=== PATIENT | female | born 1975 | race Caucasian/White ===

== ENCOUNTER 2021-02-27 22:38 | Observation (INO) | payer BC ==
[2021-02-27] MEDS ORDERED: BABY ASPIRIN 81 MG CHEW PO ONE (22:56)
--- NOTE | 2021-02-27 22:59 | ERPHSYRPT ---
- History of Present Illness Time Seen by Provider: 02/27/21 22:42 Historian: patient Exam Limitations: no limitations Physician History: 45 years old female with history of hypertension, diabetes mellitus presented in the ER with chief complaint of chest tightness and pressure for the last 3 to 4 days, gradually worsening, aggravated with activity/exertion and better with resting. Patient reports having feeling of palpitations/heart going out of rhythm. She was recently at [facility] because of syncopal episode with negative CT head and was found to have low potassium of 2.1. Patient denies any shortness of breath, fever chills or cough. Does report strong family history of heart disease. Timing/Duration: day(s) (3), intermittent, gradual onset, worse Activities at Onset: rest Quality: fullness, pressure Location: central Chest Pain Radiation: no radiation Severity of Pain-Max: moderate Severity of Pain-Current: moderate Modifying Factors: Improves With: rest. Worsens With: exertion Associated Symptoms: palpitations, No shortness of breath Prior Chest Pain/Cardiac Workup: echocardiography Nitro Today/Relief: no nitro taken today Aspirin Treatment Today: no aspirin today Allergies/Adverse Reactions: No Known Drug Allergies Allergy (Unverified 02/27/21 22:56) Home Medications: Bumetanide [Bumex] 2 mg PO DAILY 03/25/15 [History] Metformin HCl 1000 mg [Glucophage 1000 MG] 500 mg PO DAILY 03/25/15 [History] Potassium Chloride [Klor-Con M20] 20 meq PO BID 02/27/21 [History] Hx Tetanus, Diphtheria Vaccination/Date Given: No Hx Influenza Vaccination/Date Given: No Hx Pneumococcal Vaccination/Date Given: No - Review of Systems Constitutional: No Symptoms Eyes: No Symptoms Ears, Nose, & Throat: No Symptoms Respiratory: No Symptoms Cardiac: Chest Pain, Palpitations Abdominal/Gastrointestinal: No Symptoms Genitourinary Symptoms: No Symptoms Musculoskeletal: No Symptoms Skin: No Symptoms Neurological: No Symptoms Psychological: No Symptoms Endocrine: No Symptoms Hematologic/Lymphatic: No Symptoms Immunological/Allergic: No Symptoms - Past Medical History Pertinent Past Medical History: Yes Neurological History: No Pertinent History Cardiac History: No Pertinent History, Hypertension Respiratory History: No Pertinent History Endocrine Medical History: Diabetes Type II Musculoskeletal History: No Pertinent History History: Other Other Medical History: Bursitis in the R hip - Past Surgical History Past Surgical History: Yes Gastrointestinal: Cholecystectomy Genitourinary: Other Female Surgical History: Section, Hysterectomy, Tubal Ligation - Social History Smoking Status: Never smoker Exposure to second hand smoke: No Alcohol Use: Socially Drug Use: none Patient Lives Alone: No Significant Family History: diabetes - Female History Hx Now: (unkn) - Nursing Vital Signs Nursing Vital Signs: Initial Vital Signs Temperature 98.2 F 02/27/21 22:54 Pulse Rate 85 02/27/21 22:54 Respiratory Rate 18 02/27/21 22:54 Blood Pressure 137/86 02/27/21 22:54 O2 Sat by Pulse Oximetry 98 02/27/21 22:54 Pain Scale Pain Intensity 0 - Physical Exam General Appearance: no apparent distress, alert, anxiety Eye Exam: PERRL/EOMI, eyes nml inspection Ears, Nose, Throat Exam: normal ENT inspection, TMs normal, pharynx normal Neck Exam: normal inspection, supple, full range of motion Respiratory Exam: normal breath sounds, lungs clear Cardiovascular Exam: regular rate/rhythm, normal heart sounds Gastrointestinal/Abdomen Exam: soft, normal bowel sounds Back Exam: normal inspection, normal range of motion Extremity Exam: normal inspection, normal range of motion, pelvis stable Neurologic Exam: alert, oriented x 3, cooperative, professor of chemistry II-XII nml as tested Skin Exam: normal color SpO2 Interpretation: normal SpO2: 98 O2 Delivery: Room Air - Course EKG Interpreted by Me: RATE (75), Sinus Rhythm, NORMAL AXIS, Non-specific ST Changes Ordered Tests: Active Orders 24 hr Category Date Time Status Centrifuge Separator Operator STAT Care 02/27/21 22:56 Active EKG-ER Only STAT Care 02/27/21 22:56 Active IV Insertion STAT Care 02/27/21 22:56 Active CHEST 1 VIEW (PORTABLE) Stat Exams 02/27/21 22:56 Taken CBC W DIFF Stat Lab 02/27/21 23:05 Completed CMP Stat Lab 02/27/21 23:05 Completed D-DIMER QUANTITATIVE Stat Lab 02/27/21 23:05 Completed HCG QUALITATIVE,SERUM Stat Lab 02/27/21 23:05 Completed MAGNESIUM Stat Lab 02/27/21 23:05 Completed NT PRO BNP Stat Lab 02/27/21 23:05 Completed TROPONIN Q3H Lab 02/27/21 23:06 Completed TROPONIN Q3H Lab 02/28/21 02:00 Ordered TROPONIN Q3H Lab 02/28/21 05:00 Ordered TROPONIN Q3H Lab 02/28/21 08:00 Ordered TROPONIN Q3H Lab 02/28/21 11:00 Ordered TSH [TSH, 3RD Generation] Stat Lab 02/27/21 23:05 Received Medication Summary Discontinued Medications Generic Name Dose Route Start Last Admin Trade Name Ramiroq PRN Reason Stop Dose Admin Aspirin 324 mg 02/27/21 22:56 02/27/21 23:27 Baby Aspirin 81 Mg Chew PO 02/27/21 22:57 324 mg STAT ONE Administration Lab/Rad Data: Laboratory Result Diagrams 02/27/21 23:05 02/27/21 23:05 Laboratory Results 02/27/21 02/27/21 02/27/21 Range/Units 23:06 23:05 23:05 WBC (4.0-10.5) K/mm3 RBC (4.1-5.4) M/mm3 Hgb (12.0-16.0) gm/dl Hct (35-47) % MCV (78-100) fl MCH (26-32) pg MCHC (32-36) g/dl RDW (11.5-14.0) % Plt Count (150-450) K/mm3 MPV (7.5-11.0) fl Gran % (36.0-66.0) % Eos # (Auto) (0-0.5) Absolute Lymphs (auto) (1.0-4.6) Absolute Monos (auto) (0.0-1.3) Lymphocytes % (24.0-44.0) % Monocytes % (0.0-12.0) % Eosinophils % (0.00-5.0) % Basophils % (0.0-0.4) % Absolute Granulocytes (1.4-6.9) Basophils # (0-0.4) D-Dimer 301 (215-500) ng/mL Sodium (137-145) mmol/L Potassium (3.5-5.1) mmol/L Chloride (98-107) mmol/L Carbon Dioxide (22-30) mmol/L Anion Gap (5-15) MEQ/L BUN (7-17) mg/dL Creatinine (0.52-1.04) mg/dL Estimated GFR ML/MIN Glucose (74-106) mg/dL Calcium (8.4-10.2) mg/dL Magnesium (1.6-2.3) mg/dL Total Bilirubin (0.2-1.3) mg/dL AST (14-36) U/L ALT (0-35) U/L Alkaline Phosphatase (38-126) U/L Troponin I < 0.012 (0.000-0.034) ng/mL NT-Pro-B Natriuret Pep (0-450) pg/mL Serum Total Protein (6.3-8.2) g/dL Albumin (3.5-5.0) g/dL Serum , Qual NEGATIVE (Negative) 02/27/21 02/27/21 Range/Units 23:05 23:05 WBC 8.7 (4.0-10.5) K/mm3 RBC 4.19 (4.1-5.4) M/mm3 Hgb 13.0 (12.0-16.0) gm/dl Hct 38.8 (35-47) % MCV 92.6 (78-100) fl MCH 31.0 (26-32) pg MCHC 33.5 (32-36) g/dl RDW 12.4 (11.5-14.0) % Plt Count 329 (150-450) K/mm3 MPV 8.8 (7.5-11.0) fl Gran % 40.9 (36.0-66.0) % Eos # (Auto) 0.25 (0-0.5) Absolute Lymphs (auto) 3.70 (1.0-4.6) Absolute Monos (auto) 1.14 (0.0-1.3) Lymphocytes % 42.8 (24.0-44.0) % Monocytes % 13.2 H (0.0-12.0) % Eosinophils % 2.9 (0.00-5.0) % Basophils % 0.2 (0.0-0.4) % Absolute Granulocytes 3.54 (1.4-6.9) Basophils # 0.02 (0-0.4) D-Dimer (215-500) ng/mL Sodium 139 (137-145) mmol/L Potassium 3.5 (3.5-5.1) mmol/L Chloride 98 (98-107) mmol/L Carbon Dioxide 31 H (22-30) mmol/L Anion Gap 14.2 (5-15) MEQ/L BUN 26 H (7-17) mg/dL Creatinine 0.99 (0.52-1.04) mg/dL Estimated GFR > 60.0 ML/MIN Glucose 100 (74-106) mg/dL Calcium 9.3 (8.4-10.2) mg/dL Magnesium 1.9 (1.6-2.3) mg/dL Total Bilirubin 0.10 L (0.2-1.3) mg/dL AST 28 (14-36) U/L ALT 38 H (0-35) U/L Alkaline Phosphatase 61 (38-126) U/L Troponin I (0.000-0.034) ng/mL NT-Pro-B Natriuret Pep 110 (0-450) pg/mL Serum Total Protein 7.7 (6.3-8.2) g/dL Albumin 4.4 (3.5-5.0) g/dL Serum , Qual (Negative) - Progress Progress: re-examined Air Movement: good Progress Note: 02/27/21 23:43 45 years old is evaluated for chest pain. EKG showed normal sinus rhythm with no acute ischemic changes. Given aspirin, does not want any other pain medication. Chest x-ray negative for any acute cardiopulmonary findings. Initial troponin and D-dimers are negative. Grossly unremarkable chemistries. Patient continues to have some pressure. She is given Nitropaste. Patient does have a history of diabetes mellitus, hypertension and a strong family history, would be admitted to trend cardiac enzyme and rule out acute coronary syndrome. Discussed with and patient is accepted for admiss ion. Blood Culture(s) Obtained: No Antibiotics given: No Discussed with : Mesfin Will see patient in: hospital (observation) Counseled pt/family regarding: lab results, diagnosis, rad results - Departure Departure Disposition: Observation Clinical Impression: Chest pain, rule out acute myocardial infarction Condition: Stable Critical Care Time: No Referrals: SHAWN THORNTON MD [Primary Care Provider] -
[2021-02-27 23:09] LABS: Absolute Neutrophil Ct (ANC) 3.54 (1.4-6.9); BASOPHIL % 0.2 % (0.0-0.4); Basophil (Absolute #) 0.02 (0-0.4); Eosinophil % 2.9 % (0.00-5.0); Eosinophil (Absolute #) 0.25 (0-0.5); Hematocrit 38.8 % (35-47); Lymphocytes % 42.8 % (24.0-44.0); Mean Cell Volume 92.6 fl (78-100); Mean Corpuscular Hgb Concent. 33.5 g/dl (32-36); Mean Platelet Volume 8.8 fl (7.5-11.0); Monocyte (Absolute #) 1.14 (0.0-1.3); Monocytes % 13.2 % (0.0-12.0); Neutrophil % 40.9 % (36.0-66.0); Platelet Count 329 K/mm3 (150-450); Red Blood Count 4.19 M/mm3 (4.1-5.4); Red Cell Distribution Width 12.4 % (11.5-14.0); White Blood Count 8.7 K/mm3 (4.0-10.5)
[2021-02-27 23:29] LABS: ALBUMIN 4.4 g/dL (3.5-5.0); ALKALINE PHOSPHATASE 61 U/L (38-126); ANION GAP 14.2 MEQ/L (5-15); BLOOD UREA NITROGEN 26 mg/dL (7-17); CHLORIDE 98 mmol/L (98-107); Calcium 9.3 mg/dL (8.4-10.2); Carbon Dioxide 31 mmol/L (22-30); Creatinine 1 0.99 mg/dL (0.52-1.04); EST GLOMERULAR FILTRATION RATE > 60.0 ML/MIN; Glucose 100 mg/dL (74-106); MAGNESIUM 1.9 mg/dL (1.6-2.3); NT PRO BNP 110 pg/mL (0-450); Potassium 3.5 mmol/L (3.5-5.1); SGOT/AST 28 U/L (14-36); SGPT/ALT 38 U/L (0-35); SODIUM 139 mmol/L (137-145); Total Protein 7.7 g/dL (6.3-8.2)
[2021-02-27] MEDS ORDERED: NITRO-BID 2% UD PACKETS TOP ONE (23:42)
[2021-02-28] MEDS ORDERED: NITRO-BID 2% UD PACKETS ONE (00:20)
[2021-02-28] MEDS ORDERED: MORPHINE SULFATE 2 MG INJ IV PRN (02:48)
[2021-02-28] MEDS ORDERED: DUONEB 0.5-3 MG/3 ml Neb IH PRN (02:48)
[2021-02-28] MEDS ORDERED: HUMALOG SQ PRN (02:48)
[2021-02-28] MEDS ORDERED: Zofran 4 MG/2 ML VIAL IV PRN (02:48)
[2021-02-28] MEDS ORDERED: TYLENOL 325 MG PO PRN (02:48)
[2021-02-28 05:42] LABS: Absolute Neutrophil Ct (ANC) 3.45 (1.4-6.9); BASOPHIL % 0.4 % (0.0-0.4); Basophil (Absolute #) 0.03 (0-0.4); Eosinophil % 3.1 % (0.00-5.0); Eosinophil (Absolute #) 0.23 (0-0.5); Hematocrit 35.3 % (35-47); Hemoglobin 11.7 gm/dl (12.0-16.0); Lymphocyte (Absolute #) 2.69 (1.0-4.6); Lymphocytes % 36.3 % (24.0-44.0); Mean Cell Volume 94.6 fl (78-100); Mean Corpuscular Hemoglobin 31.4 pg (26-32); Mean Corpuscular Hgb Concent. 33.1 g/dl (32-36); Mean Platelet Volume 9.4 fl (7.5-11.0); Monocyte (Absolute #) 1.02 (0.0-1.3); Monocytes % 13.7 % (0.0-12.0); Neutrophil % 46.5 % (36.0-66.0); Platelet Count 305 K/mm3 (150-450); Red Blood Count 3.73 M/mm3 (4.1-5.4); Red Cell Distribution Width 12.5 % (11.5-14.0); White Blood Count 7.4 K/mm3 (4.0-10.5)
[2021-02-28 06:09] LABS: ALBUMIN 3.5 g/dL (3.5-5.0); ALKALINE PHOSPHATASE 51 U/L (38-126); ANION GAP 9.2 MEQ/L (5-15); BILIRUBIN,TOTAL < 0.10 mg/dL (0.2-1.3); BLOOD UREA NITROGEN 27 mg/dL (7-17); CHLORIDE 101 mmol/L (98-107); Calcium 8.6 mg/dL (8.4-10.2); Carbon Dioxide 31 mmol/L (22-30); Creatinine 1 0.81 mg/dL (0.52-1.04); EST GLOMERULAR FILTRATION RATE > 60.0 ML/MIN; Glucose 96 mg/dL (74-106); Potassium 3.2 mmol/L (3.5-5.1); SGOT/AST 22 U/L (14-36); SGPT/ALT 31 U/L (0-35); SODIUM 138 mmol/L (137-145); Total Protein 6.6 g/dL (6.3-8.2)
--- NOTE | 2021-02-28 08:31 | PCM.HP ---
History of Present Illness - Chief Complaint Chief Complaint: Chest pain for 2-3 days History of Present Illness: is a 45 year old female.with history of hypertension, diabetes mellitus presented in the ER with chief complaint of chest tightness and pressure for the last 3 to 4 days, gradually worsening, aggravated with activity/exertion and better with resting. Patient reports having feeling of palpitations/heart going out of rhythm. She was recently at [facility] because of syncopal episode with negative CT head and was found to have low potassium of 2.1. Patient denies any shortness of breath, fever chills or cough. Does report strong family history of heart disease. - Review of Systems Constitutional: No Fever, No Chills Eyes: No Symptoms Ears, Nose, & Throat: No Symptoms Respiratory: No Cough, No Short Of Breath Cardiac: Chest Pain, No Edema, No Syncope Abdominal/Gastrointestinal: No Abdominal Pain, No Nausea, No Vomiting, No Diarrhea Genitourinary Symptoms: No Dysuria Musculoskeletal: No Back Pain, No Neck Pain Skin: No Rash Neurological: No Dizziness, No Focal Weakness, No Sensory Changes Psychological: No Symptoms Endocrine: No Symptoms Hematologic/Lymphatic: No Symptoms Immunological/Allergic: No Symptoms Medications & Allergies Home Medications: Home Medication List Metformin HCl 1000 mg [Glucophage 1000 MG] 500 mg PO DAILY 03/25/15 [History Confirmed 02/27/21] Potassium Chloride [Klor-Con M20] 20 meq PO BID 02/27/21 [History Confirmed 02/27/21] Chlorthalidone 25 mg PO DAILY 02/28/21 [History Confirmed 02/28/21] Allergies/Adverse Reactions: Allergies Allergy/AdvReac Type Severity Reaction Status Date / Time No Known Drug Allergies Allergy Unverified 02/27/21 22:56 - Past Medical History Past Medical History: Yes Neurological History: No Pertinent History ENT History: No Pertinent History Cardiac History: No Pertinent History, High Cholesterol, Hypertension Respiratory History: No Pertinent History Endocrine Medical History: Diabetes Type II Musculoskelatal History: No Pertinent History GI Medical History: No Pertinent History History: Other Pyscho-Social History: No Pertinent History Reproductive Disorders: No Pertinent History Comment: Bursitis in the R hip - Female History Hx Last Menstrual Period: Hysterectomy Are you now?: No (unkn) - Past Surgical History Past Surgical History: Yes Neuro Surgical History: No Pertinent History Cardiac History: No Pertinent History Respiratory Surgery: No Pertinent History GI Surgical History: Cholecystectomy Genitourinary Surgical Hx: Other Musculskeletal Surgical Hx: No Pertinent History Female Surgical History: Section, Hysterectomy, Tubal Ligation Other Surgical History: HX Bladder Surgery with Mesh - Social History Smoking Status: Never smoker Exposure to second hand smoke: No Alcohol: None Drug Use: none Significant Family History: diabetes - Physical Exam Vital Signs: Vital Signs - 24 hr Temp Pulse Resp BP Pulse Ox 02/28/21 07:41 98.2 F 79 22 101/64 92 L 02/28/21 03:13 97.9 F 81 18 97/62 96 02/28/21 02:04 79 16 104/65 95 02/28/21 01:00 80 18 117/72 96 02/28/21 00:00 77 20 115/70 98 02/27/21 23:45 98 02/27/21 23:41 78 18 122/90 98 02/27/21 23:17 18 98 02/27/21 22:54 98.2 F 85 18 137/86 98 General Appearance: no apparent distress, alert Neurologic Exam: alert, oriented x 3, cooperative, normal mood/affect, nml cerebellar function, nml station & gait, sensation nml, No motor deficits Eye Exam: PERRL/EOMI, eyes nml inspection Ears, Nose, Throat Exam: normal ENT inspection, TMs normal, pharynx normal, moist mucous membranes Neck Exam: normal inspection, non-tender, supple, full range of motion Respiratory Exam: normal breath sounds, lungs clear, No respiratory distress Cardiovascular Exam: regular rate/rhythm, normal heart sounds, normal peripheral pulses Gastrointestinal/Abdomen Exam: soft, normal bowel sounds, No tenderness, No mass Back Exam: normal inspection, normal range of motion, No CVA tenderness, No vertebral tenderness Extremity Exam: normal inspection, normal range of motion, pelvis stable Skin Exam: normal color, warm, dry, No rash Lymphatic Exam: No adenopathy Results - Labs Lab/Micro Results: Lab Results-Last 24 Hours 02/27/21 02/27/21 02/27/21 Range/Units 23:05 23:05 23:05 WBC 8.7 (4.0-10.5) K/mm3 RBC 4.19 (4.1-5.4) M/mm3 Hgb 13.0 (12.0-16.0) gm/dl Hct 38.8 (35-47) % MCV 92.6 (78-100) fl MCH 31.0 (26-32) pg MCHC 33.5 (32-36) g/dl RDW 12.4 (11.5-14.0) % Plt Count 329 (150-450) K/mm3 MPV 8.8 (7.5-11.0) fl Gran % 40.9 (36.0-66.0) % Eos # (Auto) 0.25 (0-0.5) Absolute Lymphs (auto) 3.70 (1.0-4.6) Absolute Monos (auto) 1.14 (0.0-1.3) Lymphocytes % 42.8 (24.0-44.0) % Monocytes % 13.2 H (0.0-12.0) % Eosinophils % 2.9 (0.00-5.0) % Basophils % 0.2 (0.0-0.4) % Absolute Granulocytes 3.54 (1.4-6.9) Basophils # 0.02 (0-0.4) D-Dimer 301 (215-500) ng/mL Sodium 139 (137-145) mmol/L Potassium 3.5 (3.5-5.1) mmol/L Chloride 98 (98-107) mmol/L Carbon Dioxide 31 H (22-30) mmol/L Anion Gap 14.2 (5-15) MEQ/L BUN 26 H (7-17) mg/dL Creatinine 0.99 (0.52-1.04) mg/dL Estimated GFR > 60.0 ML/MIN Glucose 100 (74-106) mg/dL POC Glucometer (74 to 106) mg/dL Calcium 9.3 (8.4-10.2) mg/dL Magnesium 1.9 (1.6-2.3) mg/dL Total Bilirubin 0.10 L (0.2-1.3) mg/dL AST 28 (14-36) U/L ALT 38 H (0-35) U/L Alkaline Phosphatase 61 (38-126) U/L Troponin I (0.000-0.034) ng/mL NT-Pro-B Natriuret Pep 110 (0-450) pg/mL Serum Total Protein 7.7 (6.3-8.2) g/dL Albumin 4.4 (3.5-5.0) g/dL TSH 3rd Generation (0.47-4.68) mIU/L Serum , Qual (Negative) SARS-CoV-2 (PCR) (NEGATIVE) 02/27/21 02/27/21 02/27/21 Range/Units 23:05 23:05 23:06 WBC (4.0-10.5) K/mm3 RBC (4.1-5.4) M/mm3 Hgb (12.0-16.0) gm/dl Hct (35-47) % MCV (78-100) fl MCH (26-32) pg MCHC (32-36) g/dl RDW (11.5-14.0) % Plt Count (150-450) K/mm3 MPV (7.5-11.0) fl Gran % (36.0-66.0) % Eos # (Auto) (0-0.5) Absolute Lymphs (auto) (1.0-4.6) Absolute Monos (auto) (0.0-1.3) Lymphocytes % (24.0-44.0) % Monocytes % (0.0-12.0) % Eosinophils % (0.00-5.0) % Basophils % (0.0-0.4) % Absolute Granulocytes (1.4-6.9) Basophils # (0-0.4) D-Dimer (215-500) ng/mL Sodium (137-145) mmol/L Potassium (3.5-5.1) mmol/L Chloride (98-107) mmol/L Carbon Dioxide (22-30) mmol/L Anion Gap (5-15) MEQ/L BUN (7-17) mg/dL Creatinine (0.52-1.04) mg/dL Estimated GFR ML/MIN Glucose (74-106) mg/dL POC Glucometer (74 to 106) mg/dL Calcium (8.4-10.2) mg/dL Magnesium (1.6-2.3) mg/dL Total Bilirubin (0.2-1.3) mg/dL AST (14-36) U/L ALT (0-35) U/L Alkaline Phosphatase (38-126) U/L Troponin I < 0.012 (0.000-0.034) ng/mL NT-Pro-B Natriuret Pep (0-450) pg/mL Serum Total Protein (6.3-8.2) g/dL Albumin (3.5-5.0) g/dL TSH 3rd Generation 3.220 (0.47-4.68) mIU/L Serum , Qual NEGATIVE (Negative) SARS-CoV-2 (PCR) (NEGATIVE) 02/28/21 02/28/21 02/28/21 Range/Units 00:30 01:59 05:37 WBC (4.0-10.5) K/mm3 RBC (4.1-5.4) M/mm3 Hgb (12.0-16.0) gm/dl Hct (35-47) % MCV (78-100) fl MCH (26-32) pg MCHC (32-36) g/dl RDW (11.5-14.0) % Plt Count (150-450) K/mm3 MPV (7.5-11.0) fl Gran % (36.0-66.0) % Eos # (Auto) (0-0.5) Absolute Lymphs (auto) (1.0-4.6) Absolute Monos (auto) (0.0-1.3) Lymphocytes % (24.0-44.0) % Monocytes % (0.0-12.0) % Eosinophils % (0.00-5.0) % Basophils % (0.0-0.4) % Absolute Granulocytes (1.4-6.9) Basophils # (0-0.4) D-Dimer (215-500) ng/mL Sodium (137-145) mmol/L Potassium (3.5-5.1) mmol/L Chloride (98-107) mmol/L Carbon Dioxide (22-30) mmol/L Anion Gap (5-15) MEQ/L BUN (7-17) mg/dL Creatinine (0.52-1.04) mg/dL Estimated GFR ML/MIN Glucose (74-106) mg/dL POC Glucometer (74 to 106) mg/dL Calcium (8.4-10.2) mg/dL Magnesium (1.6-2.3) mg/dL Total Bilirubin (0.2-1.3) mg/dL AST (14-36) U/L ALT (0-35) U/L Alkaline Phosphatase (38-126) U/L Troponin I < 0.012 < 0.012 (0.000-0.034) ng/mL NT-Pro-B Natriuret Pep (0-450) pg/mL Serum Total Protein (6.3-8.2) g/dL Albumin (3.5-5.0) g/dL TSH 3rd Generation (0.47-4.68) mIU/L Serum , Qual (Negative) SARS-CoV-2 (PCR) NEGATIVE (NEGATIVE) 02/28/21 02/28/21 02/28/21 Range/Units 05:37 05:37 06:53 WBC 7.4 (4.0-10.5) K/mm3 RBC 3.73 L (4.1-5.4) M/mm3 Hgb 11.7 L (12.0-16.0) gm/dl Hct 35.3 (35-47) % MCV 94.6 (78-100) fl MCH 31.4 (26-32) pg MCHC 33.1 (32-36) g/dl RDW 12.5 (11.5-14.0) % Plt Count 305 (150-450) K/mm3 MPV 9.4 (7.5-11.0) fl Gran % 46.5 (36.0-66.0) % Eos # (Auto) 0.23 (0-0.5) Absolute Lymphs (auto) 2.69 (1.0-4.6) Absolute Monos (auto) 1.02 (0.0-1.3) Lymphocytes % 36.3 (24.0-44.0) % Monocytes % 13.7 H (0.0-12.0) % Eosinophils % 3.1 (0.00-5.0) % Basophils % 0.4 (0.0-0.4) % Absolute Granulocytes 3.45 (1.4-6.9) Basophils # 0.03 (0-0.4) D-Dimer (215-500) ng/mL Sodium 138 (137-145) mmol/L Potassium 3.2 L (3.5-5.1) mmol/L Chloride 101 (98-107) mmol/L Carbon Dioxide 31 H (22-30) mmol/L Anion Gap 9.2 (5-15) MEQ/L BUN 27 H (7-17) mg/dL Creatinine 0.81 (0.52-1.04) mg/dL Estimated GFR > 60.0 ML/MIN Glucose 96 (74-106) mg/dL POC Glucometer 104 (74 to 106) mg/dL Calcium 8.6 (8.4-10.2) mg/dL Magnesium (1.6-2.3) mg/dL Total Bilirubin < 0.10 L (0.2-1.3) mg/dL AST 22 (14-36) U/L ALT 31 (0-35) U/L Alkaline Phosphatase 51 (38-126) U/L Troponin I (0.000-0.034) ng/mL NT-Pro-B Natriuret Pep (0-450) pg/mL Serum Total Protein 6.6 (6.3-8.2) g/dL Albumin 3.5 (3.5-5.0) g/dL TSH 3rd Generation (0.47-4.68) mIU/L Serum , Qual (Negative) SARS-CoV-2 (PCR) (NEGATIVE) Accuchecks Date 02/28/21 Time 06:53 - Radiology Impressions Radiology Exams & Impressions: Radiology Procedures Category Date Time Status CHEST 1 VIEW (PORTABLE) Stat Exams 02/27/21 22:56 Taken Assessment/Plan (1) Chest pain, rule out acute myocardial infarction Current Visit: Yes Status: Acute Assessment & Plan: Chief Complaint Diagnosis Chest pain rule out acute NH Allergies Allergy/AdvReac Type Severity Reaction Status Date / Time No Known Drug Allergies Allergy Unverified 02/27/21 22:56 Vital Signs (Last 24 hours) Temp Pulse Resp BP Pulse Ox 02/28/21 07:41 98.2 F 79 22 101/64 92 L 02/28/21 03:13 97.9 F 81 18 97/62 96 02/28/21 02:04 79 16 104/65 95 02/28/21 01:00 80 18 117/72 96 02/28/21 00:00 77 20 115/70 98 02/27/21 23:45 98 02/27/21 23:41 78 18 122/90 98 02/27/21 23:17 18 98 02/27/21 22:54 98.2 F 85 18 137/86 98 Home Medications Medication Instructions Recorded Confirmed Last Taken Type Potassium Chloride [Klor-Con M20] 20 meq PO BID 02/27/21 02/27/21 02/27/21 History Chlorthalidone 25 mg PO DAILY 02/28/21 02/28/21 02/27/21 History Current Medications Generic Name Dose Route Start Last Admin Trade Name Ramiroq PRN Reason Stop Dose Admin Acetaminophen 650 mg 02/28/21 02:48 Tylenol 325 Mg PO 03/30/21 02:47 Q4H PRN PRN PAIN AND/OR FEVER Albuterol/Ipratropium 3 ml 02/28/21 02:48 Duoneb 0.5-3 Mg/3 Ml Neb IH 03/30/21 02:47 Q4HPRN PRN SHORTNESS OF BREATH/WHEEZING Insulin Human Lispro 0 unit 02/28/21 02:48 Humalog SQ 03/30/21 02:47 UD PRN HYPERGLYCEMIA Morphine Sulfate 2 mg 02/28/21 02:48 Morphine Sulfate 2 Mg Inj IV 03/05/21 02:47 Q4H PRN PRN PAIN Ondansetron HCl 4 mg 02/28/21 02:48 Zofran 4 Mg/2 Ml Vial IV 03/30/21 02:47 Q6H PRN PRN NAUSEA/VOMITING Pantoprazole Sodium 40 mg 02/28/21 10:00 Protonix 40 Mg Iv IV 03/30/21 09:59 Q24H10 RAYRAY Discontinued Medications Generic Name Dose Route Start Last Admin Trade Name Ramiroq PRN Reason Stop Dose Admin Aspirin 324 mg 02/27/21 22:56 02/27/21 23:27 Baby Aspirin 81 Mg Chew PO 02/27/21 22:57 324 mg STAT ONE Administration Nitroglycerin 0.5 gm 02/27/21 23:42 02/28/21 00:21 Nitro-Bid 2% Ud Packets TOP 02/27/21 23:43 0.5 gm STAT ONE Administration Nitroglycerin Confirm 02/28/21 00:20 Nitro-Bid 2% Ud Packets Administered 02/28/21 00:21 Dose 1 gm .ROUTE .STK-MED ONE Intake & Output (Last 24 hours) 02/25/21 02/26/21 02/27/21 02/28/21 11:59 11:59 11:59 11:59 Intake Total 240 Balance 240 Weight 77.3 kg Laboratory Results (Last 24 hours) 02/28/21 02/28/21 02/28/21 06:53 05:37 05:37 WBC 7.4 RBC 3.73 L Hgb 11.7 L Hct 35.3 MCV 94.6 MCH 31.4 MCHC 33.1 RDW 12.5 Plt Count 305 MPV 9.4 Gran % 46.5 Eos # (Auto) 0.23 Absolute Lymphs (auto) 2.69 Absolute Monos (auto) 1.02 Lymphocytes % 36.3 Monocytes % 13.7 H Eosinophils % 3.1 Basophils % 0.4 Absolute Granulocytes 3.45 Basophils # 0.03 D-Dimer Sodium 138 Potassium 3.2 L Chloride 101 Carbon Dioxide 31 H Anion Gap 9.2 BUN 27 H Creatinine 0.81 Estimated GFR > 60.0 Glucose 96 POC Glucometer 104 Calcium 8.6 Magnesium Total Bilirubin < 0.10 L AST 22 ALT 31 Alkaline Phosphatase 51 Troponin I NT-Pro-B Natriuret Pep Serum Total Protein 6.6 Albumin 3.5 TSH 3rd Generation Serum , Qual SARS-CoV-2 (PCR) 02/28/21 02/28/21 02/28/21 05:37 01:59 00:30 WBC RBC Hgb Hct MCV MCH MCHC RDW Plt Count MPV Gran % Eos # (Auto) Absolute Lymphs (auto) Absolute Monos (auto) Lymphocytes % Monocytes % Eosinophils % Basophils % Absolute Granulocytes Basophils # D-Dimer Sodium Potassium Chloride Carbon Dioxide Anion Gap BUN Creatinine Estimated GFR Glucose POC Glucometer Calcium Magnesium Total Bilirubin AST ALT Alkaline Phosphatase Troponin I < 0.012 < 0.012 NT-Pro-B Natriuret Pep Serum Total Protein Albumin TSH 3rd Generation Serum , Qual SARS-CoV-2 (PCR) NEGATIVE 02/27/21 02/27/21 02/27/21 23:06 23:05 23:05 WBC RBC Hgb Hct MCV MCH MCHC RDW Plt Count MPV Gran % Eos # (Auto) Absolute Lymphs (auto) Absolute Monos (auto) Lymphocytes % Monocytes % Eosinophils % Basophils % Absolute Granulocytes Basophils # D-Dimer Sodium Potassium Chloride Carbon Dioxide Anion Gap BUN Creatinine Estimated GFR Glucose POC Glucometer Calcium Magnesium Total Bilirubin AST ALT Alkaline Phosphatase Troponin I < 0.012 NT-Pro-B Natriuret Pep Serum Total Protein Albumin TSH 3rd Generation 3.220 Serum , Qual NEGATIVE SARS-CoV-2 (PCR) 02/27/21 02/27/21 02/27/21 23:05 23:05 23:05 WBC 8.7 RBC 4.19 Hgb 13.0 Hct 38.8 MCV 92.6 MCH 31.0 MCHC 33.5 RDW 12.4 Plt Count 329 MPV 8.8 Gran % 40.9 Eos # (Auto) 0.25 Absolute Lymphs (auto) 3.70 Absolute Monos (auto) 1.14 Lymphocytes % 42.8 Monocytes % 13.2 H Eosinophils % 2.9 Basophils % 0.2 Absolute Granulocytes 3.54 Basophils # 0.02 D-Dimer 301 Sodium 139 Potassium 3.5 Chloride 98 Carbon Dioxide 31 H Anion Gap 14.2 BUN 26 H Creatinine 0.99 Estimated GFR > 60.0 Glucose 100 POC Glucometer Calcium 9.3 Magnesium 1.9 Total Bilirubin 0.10 L AST 28 ALT 38 H Alkaline Phosphatase 61 Troponin I NT-Pro-B Natriuret Pep 110 Serum Total Protein 7.7 Albumin 4.4 TSH 3rd Generation Serum , Qual SARS-CoV-2 (PCR) Orders (Last 24 hours) Category Date Time Status Bedrest with BRP/BSC ROUTINE Activity 02/28/21 02:48 Active Up With Assistance ROUTINE Activity 02/28/21 02:48 Active Deboner STAT Care 02/27/21 22:56 Completed Code Status Order ROUTINE Care 02/28/21 02:48 Active EKG-ER Only STAT Care 02/27/21 22:56 Completed Fall Protocol Q1H Care 02/28/21 02:48 Active IV Care Q6H Care 02/28/21 02:48 Active IV Insertion STAT Care 02/27/21 22:56 Completed POCT Glucose Check ACHS Care 02/28/21 02:[address] in Observation ROUTINE Care 02/28/21 02:48 Active Genoveva Anaya ROUTINE Care 02/28/21 02:48 Active Consistent Carbohydrate Diet 1800 Calorie Diet 02/28/21 Breakfast Active CHEST 1 VIEW (PORTABLE) Stat Exams 02/27/21 22:56 Taken CBC W DIFF AM.LAB Lab 02/28/21 05:37 Completed CBC W DIFF Stat Lab 02/27/21 23:05 Completed CMP AM.LAB Lab 02/28/21 05:37 Completed CMP Stat Lab 02/27/21 23:05 Completed D-DIMER QUANTITATIVE Stat Lab 02/27/21 23:05 Completed HCG QUALITATIVE,SERUM Stat Lab 02/27/21 23:05 Completed MAGNESIUM Stat Lab 02/27/21 23:05 Completed NT PRO BNP Stat Lab 02/27/21 23:05 Completed POCT GLUCOSE Stat Lab 02/28/21 06:53 Completed SARS-CoV-2 Xpert Express Routine Lab 02/28/21 00:30 Completed TROPONIN Q3H Lab 02/27/21 23:06 Completed TROPONIN Q3H Lab 02/28/21 01:59 Completed TROPONIN Q3H Lab 02/28/21 05:37 Completed TROPONIN Q3H Lab 02/28/21 08:10 Received TROPONIN Q3H Lab 02/28/21 11:00 Ordered TSH [TSH, 3RD Generation] Stat Lab 02/27/21 23:05 Completed Acetaminophen 325 mg [Tylenol 325 mg] Med 02/28/21 02:48 Active 650 mg PO Q4H PRN PRN Albuterol/Ipratropium 3ml Neb* [DUONEB 0.5-3 MG/3 ml Med 02/28/21 02:48 Active Neb] 3 ml IH Q4HPRN PRN Aspirin 81 gm Chew [Baby Aspirin 81 mg Chew] Med 02/27/21 22:56 Discontinued 324 mg PO STAT ONE Insulin Lispro [Humalog] Med 02/28/21 02:48 Active See Dose Instructions SQ UD PRN Morphine Sulfate 2 mg Inj Med 02/28/21 02:48 Active 2 mg IV Q4H PRN PRN Nitroglycerin 2 %Ointment [Nitro-Bid 2% Ud Packets Med 02/27/21 23:42 Discontinued *] 0.5 gm TOP STAT ONE Nitroglycerin 2 %Ointment [Nitro-Bid 2% Ud Packets Med 02/28/21 00:20 D iscontinued *] 1 gm .ROUTE .STK-MED ONE Ondansetron HCl 4 mg/2 ml [Zofran 4 MG/2 ML VIAL] Med 02/28/21 02:48 Active 4 mg IV Q6H PRN PRN Pantoprazole 40 mg [Protonix 40 mg IV] Med 02/28/21 10:00 Active 40 mg IV Q24H10 Patient Care Notes (Last 24 hours) 02/28/21 04:11 Respiratory Note by Norberto Newman CANCELLED O2 ORDER AND PRN TX. PT 93% ON RA AT THIS TIME AND DOESN'T TAKE TX AT HM. NOT INDICATED AT THIS TIME. Initialized on 02/28/21 04:11 - END OF NOTE Code(s): R07.9 - CHEST PAIN, UNSPECIFIED
--- NOTE | 2021-02-28 08:54 | XRAY ---
Indication: Chest pain and short of breath. Comparison: None Portable chest demonstrates normal heart and lungs. Bony thorax intact with old right clavicle fracture.
[2021-02-28] MEDS ORDERED: NON-FORMULARY ITEM (Chlorthalidone [Chlorthalidone] 25 MG) PO SCH (10:00)
[2021-02-28] MEDS ORDERED: NON-FORMULARY ITEM PO SCH (10:00)
[2021-02-28] MEDS ORDERED: NON-FORMULARY ITEM (Potassium Chloride [Klor-Con M20] 20 MEQ) PO SCH (10:00)
[2021-02-28] MEDS ORDERED: Glucophage 500 MG PO SCH (10:00)
[2021-02-28] MEDS ORDERED: Klor Con 10 MEQ PO SCH (10:00)
[2021-02-28] MEDS ORDERED: PROTONIX 40 MG IV IV SCH (10:00)
[2021-02-28 12:26] VITALS: BP 113/64; PULSE 70; O2SAT 96
== END 2021-02-28 14:00 | disposition home or self-care (01) ==
LOC: ED 22:38 → MED SURG 02-28 02:35
PROVIDERS: ADMIT General Practice; ATTEND General Practice
DX: R07.9 Chest pain, unspecified (principal); I10 Essential (primary) hypertension; E11.9 Type 2 diabetes mellitus without complications; R00.2 Palpitations; Z79.899 Other long term (current) drug therapy; E78.00 Pure hypercholesterolemia, unspecified; Z20.828 Contact with and (suspected) exposure to other viral communicable diseases
CPT/HCPCS: 36000; 36415; 71045; 80053; 81025; 82947; 83735; 83880; 84443; 84484; 85025; 85379; 93005; 93041; 93268; 99285; G0378; U0003; A9270-GY

== ENCOUNTER 2021-07-24 16:14 | Day surgery (SDC) | payer BC ==
[2021-07-24] MEDS ORDERED: Xylocaine 1% Vial 30 ML PF IJ ONE (16:15)
[2021-07-24] MEDS ORDERED: BUPIVACAINE 0.5% VIAL IJ ONE (16:15)
[2021-07-24] MEDS ORDERED: Depo-Medrol 40 MG/ML IM ONE (16:15)
--- NOTE | 2021-07-24 18:10 | XRAY ---
Indication: Bilateral SI joint injection. Intraoperative fluoroscopy provided for 42 seconds. 5 digital spot image submitted for interpretation demonstrates posterior needle tip projecting over the inferior left and right SI joint. Correlate with intraoperative findings/report.
--- NOTE | 2021-07-25 08:53 | XRAY ---
42 seconds fluoroscopy time in surgery for injections of both SI joints.
== END 2021-07-24 17:30 | disposition home or self-care (01) ==
LOC: SDC-PAIN 16:14
PROVIDERS: ATTEND Psychiatry & Neurology Pain Medicine
DX: M46.1 Sacroiliitis, not elsewhere classified (principal); I10 Essential (primary) hypertension; E11.9 Type 2 diabetes mellitus without complications; Z79.899 Other long term (current) drug therapy
CPT/HCPCS: 27096; 72202; 77002; 82947; J1030; J2001; G0260

== ENCOUNTER 2021-08-07 06:49 | Day surgery (SDC) | payer BC ==
[2021-08-07] MEDS ORDERED: BUPIVACAINE 0.5% VIAL IJ ONE (06:50)
[2021-08-07] MEDS ORDERED: Xylocaine 1% Vial 30 ML PF IJ ONE (06:50)
[2021-08-07] MEDS ORDERED: Decadron 4 MG INJ IV ONE (06:50)
--- NOTE | 2021-08-07 10:08 | XRAY ---
Indication: Right hip injection. Intraoperative fluoroscopy provided for 20 seconds. Single digital spot image obtained prone submitted for interpretation demonstrates needle tip projecting just lateral to the right femur neck. Small amount of contrast injected for needle tip placement. Correlate with intraoperative findings/report.
--- NOTE | 2021-08-07 10:18 | XRAY ---
Indication: Right piriformis injection. Intraoperative fluoroscopy provided for 17 seconds. Single digital spot image obtained prone submitted for interpretation demonstrates posterior needle tip projecting over the expected right piriformis muscle. Small amount of contrast injected for needle tip placement. Correlate with intraoperative findings/report.
--- NOTE | 2021-08-07 10:43 | XRAY ---
17 seconds of fluoroscopy was used in surgery for a right piriformis injection.
--- NOTE | 2021-08-07 10:53 | XRAY ---
20 seconds of fluoroscopy was used in surgery for a right hip intra-articular injection.
== END 2021-08-07 08:20 | disposition home or self-care (01) ==
LOC: SDC-PAIN 06:49
PROVIDERS: ATTEND Psychiatry & Neurology Pain Medicine
DX: M16.11 Unilateral primary osteoarthritis, right hip (principal); M79.18 Myalgia, other site; I10 Essential (primary) hypertension; E11.9 Type 2 diabetes mellitus without complications; Z79.899 Other long term (current) drug therapy
CPT/HCPCS: 20552; 20610; 72020; 73501; 77002; 82947; J1100; J2001; Q9966

== ENCOUNTER 2021-08-12 10:50 | Emergency (ER) | payer BC ==
--- NOTE | 2021-08-12 11:27 | ERPHSYRPT ---
- History of Present Illness Time Seen by Provider: 08/12/21 11:15 Source: patient Exam Limitations: no limitations Patient Subjective Stated Complaint: Weakness Triage Nursing Assessment: Patient ambulated back to ED and transferred self to bed. Patient A+O X3. Patient's skin pink, warm and dry. Patient complains of weakness that started today. Patient states she has a hx of low potassium and it feels like her potassium is low. Patient states last night she was having cramps in the back of her legs. Patient denies pain or discomfort. Patient has K+ drawn on 08/05/2021 and it was 3.2. Physician History: This is a 46-year-old obese white female patient of Dr. Thornton who has chronic recurrent low potassium levels and also is a [id number] diabetic. Patient states that she is having similar symptoms that she had in the past when her potassium is low including leg cramping and weakness and some dizziness. Symptoms began last night and worsened this morning. Patient denies shortness of breath. She denies chest pain. There is been no changes in her medication. She has not had any vomiting or diarrhea. Severity: moderate Modifying Factors: Improves With: nothing Associated Symptoms: weakness, No nausea, No vomiting, No abdominal pain, No shortness of breath, No chest pain Allergies/Adverse Reactions: No Known Drug Allergies Allergy (Verified 08/12/21 11:06) Home Medications: Metformin HCl 1000 mg [Glucophage 1000 MG] 500 mg PO DAILY 03/25/15 [History] Potassium Chloride [Klor-Con M20] 20 meq PO BID 02/27/21 [History] Bumetanide 1 tab PO DAILY 08/12/21 [History] Hx Tetanus, Diphtheria Vaccination/Date Given: No Hx Influenza Vaccination/Date Given: No Hx Pneumococcal Vaccination/Date Given: No Immunizations Up to Date: Yes Travel Risk - International Travel Have you traveled outside of the country in past 3 weeks: No - Coronavirus Screening Are you exhibiting any of the following symptoms?: No Close contact with a COVID-19 positive Pt in past 14-21 Days: No - Vaccine Status Have you recieved a Covid-19 vaccination: 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[employer] - Vaccination Dates Date of 2cond Vaccination (if applicable): April 2021 - Review of Systems Constitutional: Weakness Eyes: No Symptoms Ears, Nose, & Throat: No Symptoms Respiratory: No Symptoms Cardiac: No Symptoms Abdominal/Gastrointestinal: No Symptoms Genitourinary Symptoms: No Symptoms Musculoskeletal: Myalgias (Bilateral lower leg cramping) Skin: No Symptoms Neurological: No Symptoms Psychological: No Symptoms Endocrine: No Symptoms Hematologic/Lymphatic: No Symptoms Immunological/Allergic: No Symptoms All Other Systems: Reviewed and Negative - Past Medical History Pertinent Past Medical History: Yes Neurological History: No Pertinent History ENT History: No Pertinent History Cardiac History: No Pertinent History, High Cholesterol, Hypertension Respiratory History: No Pertinent History Endocrine Medical History: Diabetes Type II Musculoskeletal History: No Pertinent History GI Medical History: No Pertinent History History: Other Psycho-Social History: No Pertinent History Female Reproductive Disorders: No Pertinent History Other Medical History: Bursitis in the R hip - Past Surgical History Past Surgical History: Yes Neuro Surgical History: No Pertinent History Cardiac: No Pertinent History Respiratory: No Pertinent History Gastrointestinal: Cholecystectomy Genitourinary: Other Musculoskeletal: No Pertinent History Female Surgical History: Section, Hysterectomy, Tubal Ligation Other Surgical History: HX Bladder Surgery with Mesh - Social History Smoking Status: Never smoker Exposure to second hand smoke: No Alcohol Use: Socially Drug Use: none Patient Lives Alone: No Significant Family History: diabetes - Female History Hx Last Menstrual Period: hysterectomy Hx Now: No - Nursing Vital Signs Nursing Vital Signs: Initial Vital Signs Temperature 97.6 F 08/12/21 11:01 Pulse Rate 73 08/12/21 11:01 Respiratory Rate 18 08/12/21 11:01 Blood Pressure 106/87 08/12/21 11:01 O2 Sat by Pulse Oximetry 99 08/12/21 11:01 Pain Scale Pain Intensity 0 - Physical Exam General Appearance: no apparent distress, alert, anxiety, obese Eye Exam: PERRL/EOMI, eyes nml inspection Ears, Nose, Throat Exam: normal ENT inspection, moist mucous membranes Neck Exam: normal inspection, non-tender, supple, full range of motion Respiratory Exam: normal breath sounds, lungs clear, airway intact, No chest tenderness, No respiratory distress Cardiovascular Exam: regular rate/rhythm, normal heart sounds, normal peripheral pulses Gastrointestinal/Abdomen Exam: soft, normal bowel sounds, No tenderness Pelvic Exam: not done Rectal Exam: not done Back Exam: normal inspection, normal range of motion, No CVA tenderness, No vertebral tenderness Extremity Exam: normal inspection, normal range of motion, pelvis stable Neurologic Exam: alert, oriented x 3, cooperative, 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, normal mood/affect, nml cerebellar function, nml station & gait, sensation nml Skin Exam: normal color, warm, dry Lymphatic Exam: No adenopathy SpO2 Interpretation: normal SpO2: 99 O2 Delivery: Room Air - Course Nursing assessment & vital signs reviewed: Yes Ordered Tests: Active Orders 24 hr Category Date Time Status Wallpaper Hanger STAT Care 08/12/21 13:12 Active IV Insertion STAT Care 08/12/21 11:27 Active BMP Stat Lab 08/12/21 17:34 Completed CBC W DIFF Stat Lab 08/12/21 11:38 Completed CMP Stat Lab 08/12/21 11:38 Completed MAGNESIUM Stat Lab 08/12/21 11:38 Completed TROPONIN Q3H Lab 08/12/21 11:38 Completed TROPONIN Q3H Lab 08/12/21 14:57 Completed TROPONIN Q3H Lab 08/12/21 17:34 Completed TROPONIN Q3H Lab 08/12/21 20:30 Ordered TROPONIN Q3H Lab 08/12/21 23:30 Ordered UA W/RFX UR CULTURE Stat Lab 08/12/21 11:31 Completed Medication Summary Generic Name Dose Route Start Last Admin Trade Name Freq PRN Reason Stop Dose Admin Potassium Chloride 20 meq in 100 mls @ 50 mls/hr 08/12/21 13:00 08/12/21 15:12 Potassium Chloride 20 Meq In Water 100ml IV 08/12/21 16:59 50 mls/hr Q2H RAYRAY Administration Sodium Chloride 1,000 mls @ 100 mls/hr 08/12/21 13:15 08/12/21 13:08 Sodium Chloride 0.9% 1000 Ml IV 09/11/21 13:14 100 mls/hr .Q10H RAYRAY Administration Discontinued Medications Generic Name Dose Route Start Last Admin Trade Name Freq PRN Reason Stop Dose Admin Hydrocodone Bitart/Acetaminophen 1 tab 08/12/21 13:08 08/12/21 13:10 Hydrocodone/Apap 5/325 Mg Tablet PO 08/12/21 13:09 1 tab STAT ONE Administration Hydrocodone Bitart/Acetaminophen Confirm 08/12/21 13:10 Hydrocodone/Apap 5/325 Mg Tablet Administered 08/12/21 13:11 Dose 1 tab .ROUTE .STK-MED ONE Potassium Chloride 20 meq 08/12/21 12:54 08/12/21 13:07 Potassium Chloride 10 Meq Tablet PO 08/12/21 12:55 20 meq STAT ONE Administration Potassium Chloride Confirm 08/12/21 13:06 Potassium Chloride 10 Meq Tablet Administered 08/12/21 13:07 Dose 20 meq PO .STK-MED ONE Lab/Rad Data: Laboratory Result Diagrams 08/12/21 11:38 08/12/21 17:34 Laboratory Results 08/12/21 08/12/21 08/12/21 Range/Units 17:34 17:34 14:57 WBC (4.0-10.5) K/mm3 RBC (4.1-5.4) M/mm3 Hgb (12.0-16.0) gm/dl Hct (35-47) % MCV (78-100) fl MCH (26-32) pg MCHC (32-36) g/dl RDW (11.5-14.0) % Plt Count (150-450) K/mm3 MPV (7.5-11.0) fl Gran % (36.0-66.0) % Eos # (Auto) (0-0.5) Absolute Lymphs (auto) (1.0-4.6) Absolute Monos (auto) (0.0-1.3) Lymphocytes % (24.0-44.0) % Monocytes % (0.0-12.0) % Eosinophils % (0.00-5.0) % Basophils % (0.0-0.4) % Absolute Granulocytes (1.4-6.9) Basophils # (0-0.4) Sodium 135 L (137-145) mmol/L Potassium 3.4 L D (3.5-5.1) mmol/L Chloride 97 L (98-107) mmol/L Carbon Dioxide 30 (22-30) mmol/L Anion Gap 10.7 (5-15) MEQ/L BUN 20 H (7-17) mg/dL Creatinine 0.70 (0.52-1.04) mg/dL Estimated GFR > 60.0 ML/MIN Glucose 96 (74-106) mg/dL Calcium 8.6 (8.4-10.2) mg/dL Magnesium (1.6-2.3) mg/dL Total Bilirubin (0.2-1.3) mg/dL AST (14-36) U/L ALT (0-35) U/L Alkaline Phosphatase (38-126) U/L Troponin I < 0.012 < 0.012 (0.000-0.034) ng/mL Serum Total Protein (6.3-8.2) g/dL Albumin (3.5-5.0) g/dL Urine Color (YELLOW) Urine Appearance (CLEAR) Urine pH (5-6) Ur Specific Elmore (1.005-1.025) Urine Protein (Negative) Urine Ketones (NEGATIVE) Urine Blood (0-5) Vivek/ul Urine Nitrite (NEGATIVE) Urine Bilirubin (NEGATIVE) Urine Urobilinogen (0-1) mg/dL Ur Leukocyte Esterase (NEGATIVE) Urine WBC (Auto) (0-5) /HPF Urine RBC (Auto) (0-2) /HPF U Hyaline Cast (Auto) (0-2) /LPF U Epithel Cells (Auto) (FEW) /HPF Urine Bacteria (Auto) (NEGATIVE) /HPF Urine Culture Reflexed (NO) Urine Glucose (NEGATIVE) mg/dL 08/12/21 08/12/21 08/12/21 Range/Units 11:38 11:38 11:38 WBC 7.8 (4.0-10.5) K/mm3 RBC 5.01 (4.1-5.4) M/mm3 Hgb 15.5 (12.0-16.0) gm/dl Hct 47.0 (35-47) % MCV 93.8 (78-100) fl MCH 30.9 (26-32) pg MCHC 33.0 (32-36) g/dl RDW 13.1 (11.5-14.0) % Plt Count 360 (150-450) K/mm3 MPV 9.3 (7.5-11.0) fl Gran % 46.0 (36.0-66.0) % Eos # (Auto) 0.19 (0-0.5) Absolute Lymphs (auto) 2.77 (1.0-4.6) Absolute Monos (auto) 1.20 (0.0-1.3) Lymphocytes % 35.7 (24.0-44.0) % Monocytes % 15.5 H (0.0-12.0) % Eosinophils % 2.4 (0.00-5.0) % Basophils % 0.4 (0.0-0.4) % Absolute Granulocytes 3.57 (1.4-6.9) Basophils # 0.03 (0-0.4) Sodium 132 L (137-145) mmol/L Potassium 2.8 L* (3.5-5.1) mmol/L Chloride 88 L (98-107) mmol/L Carbon Dioxide 33 H (22-30) mmol/L Anion Gap 13.4 (5-15) MEQ/L BUN 24 H (7-17) mg/dL Creatinine 0.84 (0.52-1.04) mg/dL Estimated GFR > 60.0 ML/MIN Glucose 106 (74-106) mg/dL Calcium 8.9 (8.4-10.2) mg/dL Magnesium 1.8 (1.6-2.3) mg/dL Total Bilirubin 0.50 (0.2-1.3) mg/dL AST 26 (14-36) U/L ALT 36 H (0-35) U/L Alkaline Phosphatase 65 (38-126) U/L Troponin I < 0.012 (0.000-0.034) ng/mL Serum Total Protein 7.9 (6.3-8.2) g/dL Albumin 4.2 (3.5-5.0) g/dL Urine Color (YELLOW) Urine Appearance (CLEAR) Urine pH (5-6) Ur Specific [place] (1.005-1.025) Urine Protein (Negative) Urine Ketones (NEGATIVE) Urine Blood (0-5) Vivek/ul Urine Nitrite (NEGATIVE) Urine Bilirubin (NEGATIVE) Urine Urobilinogen (0-1) mg/dL Ur Leukocyte Esterase (NEGATIVE) Urine WBC (Auto) (0-5) /HPF Urine RBC (Auto) (0-2) /HPF U Hyaline Cast (Auto) (0-2) /LPF U Epithel Cells (Auto) (FEW) /HPF Urine Bacteria (Auto) (NEGATIVE) /HPF Urine Culture Reflexed (NO) Urine Glucose (NEGATIVE) mg/dL 08/12/ Range/Units 11:31 WBC (4.0-10.5) K/mm3 RBC (4.1-5.4) M/mm3 Hgb (12.0-16.0) gm/dl Hct (35-47) % MCV (78-100) fl MCH (26-32) pg MCHC (32-36) g/dl RDW (11.5-14.0) % Plt Count (150-450) K/mm3 MPV (7.5-11.0) fl Gran % (36.0-66.0) % Eos # (Auto) (0-0.5) Absolute Lymphs (auto) (1.0-4.6) Absolute Monos (auto) (0.0-1.3) Lymphocytes % (24.0-44.0) % Monocytes % (0.0-12.0) % Eosinophils % (0.00-5.0) % Basophils % (0.0-0.4) % Absolute Granulocytes (1.4-6.9) Basophils # (0-0.4) Sodium (137-145) mmol/L Potassium (3.5-5.1) mmol/L Chloride (98-107) mmol/L Carbon Dioxide (22-30) mmol/L Anion Gap (5-15) MEQ/L BUN (7-17) mg/dL Creatinine (0.52-1.04) mg/dL Estimated GFR ML/MIN Glucose (74-106) mg/dL Calcium (8.4-10.2) mg/dL Magnesium (1.6-2.3) mg/dL Total Bilirubin (0.2-1.3) mg/dL AST (14-36) U/L ALT (0-35) U/L Alkaline Phosphatase (38-126) U/L Troponin I (0.000-0.034) ng/mL Serum Total Protein (6.3-8.2) g/dL Albumin (3.5-5.0) g/dL Urine Color STRAW (YELLOW) Urine Appearance CLEAR (CLEAR) Urine pH 7.0 (5-6) Ur Specific [place] 1.008 (1.005-1.025) Urine Protein NEGATIVE (Negative) Urine Ketones NEGATIVE (NEGATIVE) Urine Blood NEGATIVE (0-5) Vivek/ul Urine Nitrite NEGATIVE (NEGATIVE) Urine Bilirubin NEGATIVE (NEGATIVE) Urine Urobilinogen NEGATIVE (0-1) mg/dL Ur Leukocyte Esterase NEGATIVE (NEGATIVE) Urine WBC (Auto) NONE (0-5) /HPF Urine RBC (Auto) NONE (0-2) /HPF U Hyaline Cast (Auto) 3-5 (0-2) /LPF U Epithel Cells (Auto) NONE (FEW) /HPF Urine Bacteria (Auto) NONE (NEGATIVE) /HPF Urine Culture Reflexed NO (NO) Urine Glucose NEGATIVE (NEGATIVE) mg/dL - Departure Departure Disposition: Home Clinical Impression: Hypokalemia Condition: Stable Critical Care Time: No Referrals: SHAWN THORNTON MD [Primary Care Provider] - Follow up/PCP as directed Additional Instructions: Hold your Bumex for 48 hours. Call your primary care doctor tomorrow for further management. Continue your potassium as prescribed.
[2021-08-12 11:40] LABS: Absolute Neutrophil Ct (ANC) 3.57 (1.4-6.9); BASOPHIL % 0.4 % (0.0-0.4); Basophil (Absolute #) 0.03 (0-0.4); Eosinophil % 2.4 % (0.00-5.0); Eosinophil (Absolute #) 0.19 (0-0.5); Hemoglobin 15.5 gm/dl (12.0-16.0); Lymphocyte (Absolute #) 2.77 (1.0-4.6); Lymphocytes % 35.7 % (24.0-44.0); Mean Cell Volume 93.8 fl (78-100); Mean Corpuscular Hemoglobin 30.9 pg (26-32); Mean Platelet Volume 9.3 fl (7.5-11.0); Monocytes % 15.5 % (0.0-12.0); Platelet Count 360 K/mm3 (150-450); Red Blood Count 5.01 M/mm3 (4.1-5.4); Red Cell Distribution Width 13.1 % (11.5-14.0); White Blood Count 7.8 K/mm3 (4.0-10.5)
[2021-08-12 11:48] LABS: Appearance CLEAR (CLEAR); Bilirubin NEGATIVE (NEGATIVE); Blood NEGATIVE Ery/ul (0-5); Glucose NEGATIVE (NEGATIVE); Ketones NEGATIVE (NEGATIVE); Leukocyte Esterase NEGATIVE (NEGATIVE); Nitrite NEGATIVE (NEGATIVE); Protein,Urine Dip NEGATIVE (Negative); Specific Gravity 1.008 (1.005-1.025); Urobilinogen NEGATIVE mg/dL (0-1)
[2021-08-12 12:47] LABS: ALBUMIN 4.2 g/dL (3.5-5.0); ALKALINE PHOSPHATASE 65 U/L (38-126); ANION GAP 13.4 MEQ/L (5-15); BLOOD UREA NITROGEN 24 mg/dL (7-17); CHLORIDE 88 mmol/L (98-107); Calcium 8.9 mg/dL (8.4-10.2); Carbon Dioxide 33 mmol/L (22-30); Creatinine 1 0.84 mg/dL (0.52-1.04); EST GLOMERULAR FILTRATION RATE > 60.0 ML/MIN; Glucose 106 mg/dL (74-106); MAGNESIUM 1.8 mg/dL (1.6-2.3); SGOT/AST 26 U/L (14-36); SGPT/ALT 36 U/L (0-35); SODIUM 132 mmol/L (137-145); Total Protein 7.9 g/dL (6.3-8.2)
[2021-08-12 12:53] LABS: Potassium 2.8 mmol/L (3.5-5.1)
[2021-08-12] MEDS ORDERED: Klor Con 10 MEQ PO ONE ×2 (12:54→13:06)
[2021-08-12] MEDS ORDERED: POTASSIUM CHLORIDE 20 mEq IN WATER 100ML 100 ML IV ONE ×2 (13:06→15:11)
[2021-08-12] MEDS ORDERED: Sodium Chloride 0.9% 1000 ML 1,000 ML ONE (13:06)
[2021-08-12] MEDS: POTASSIUM CHLORIDE 20 mEq IN WATER 100ML 20 MEQ/100 ML BAG IV SCH ×2 (13:08→15:12)
[2021-08-12] MEDS ORDERED: NORCO 5/325 MG PO ONE (13:08)
[2021-08-12] MEDS ORDERED: NORCO 5/325 MG ONE (13:10)
[2021-08-12] MEDS ORDERED: Sodium Chloride 0.9% 1000 ML 1,000 ML IV SCH (13:15)
[2021-08-12 18:52] LABS: ANION GAP 10.7 MEQ/L (5-15); BLOOD UREA NITROGEN 20 mg/dL (7-17); CHLORIDE 97 mmol/L (98-107); Calcium 8.6 mg/dL (8.4-10.2); Carbon Dioxide 30 mmol/L (22-30); EST GLOMERULAR FILTRATION RATE > 60.0 ML/MIN; Glucose 96 mg/dL (74-106); Potassium 3.4 mmol/L (3.5-5.1); SODIUM 135 mmol/L (137-145)
[2021-08-12 19:02] VITALS: O2SAT 99
[2021-08-12 19:05] VITALS: BP 108/76; PULSE 76
== END 2021-08-12 19:16 | disposition home or self-care (01) ==
LOC: ED 10:50
DX: E87.6 Hypokalemia (principal); R53.1 Weakness; R25.2 Cramp and spasm; R42 Dizziness and giddiness; E78.5 Hyperlipidemia, unspecified; I10 Essential (primary) hypertension; E11.9 Type 2 diabetes mellitus without complications; Z79.84 Long term (current) use of oral hypoglycemic drugs
CPT/HCPCS: 36000; 36415; 80048; 80053; 81001; 83735; 84484; 85025; 93041; 99284; J3480; A9270-GY

== ENCOUNTER 2022-12-30 20:37 | Emergency (ER) | payer BC ==
[2022-12-30 20:43] VITALS: O2SAT 100
--- NOTE | 2022-12-30 22:52 | ERPHSYRPT ---
- History of Present Illness Time Seen by Provider: 12/30/22 22:47 Source: patient Exam Limitations: no limitations Patient Subjective Stated Complaint: lifted up an old antique lawnmower and sat it down and the handle flipped up and hit her in the rt ear, rt side of head. Triage Nursing Assessment: pt arrived via ambulance. Pt was outside planting [place] and lifted up an old antique lawnmower and sat it down and the handle flipped up and hit in the rt ear and rt side of head. Pt c/o rt ear pain and headache. Pt has a 2cm laceration to rt earlobe with minimal bleeding. Pt sat down after the incident and had a brief loc. Pt's spouse was with her, she did not fall or hit her head. Pt is alert and oriented x4. Physician History: Patient is a 47-year-old female presents to our ED via EMS for evaluation of tr auma to her right ear. Patient states she was planting [place]. She was moving an antique lawn more when the handle hit her right ear. Injury occurred just prior to arrival. Patient began to bleed from her right earlobe. Patient sat down and states she briefly passed out. Patient complains of a headache. Patient has some tenderness along the right cervical paraspinal musculature. No chest pain or shortness of breath. No nausea vomiting or diaphoresis. Symptoms are constant. Patient voices no other complaints or concerns at this time. Portions of this note were created with voice recognition technology. There may be grammatical, spelling, punctuation or sound alike errors Timing/Duration: today Severity: moderate Modifying Factors: Improves With: nothing Associated Symptoms: other (Syncope) Allergies/Adverse Reactions: No Known Drug Allergies Allergy (Verified 12/30/22 21:03) Home Medications: Potassium Chloride [Klor-Con M20] 20 meq PO DAILY 02/27/21 [History] Bumetanide 1 tab PO DAILY 08/12/21 [History] Hx Tetanus, Diphtheria Vaccination/Date Given: No Hx Influenza Vaccination/Date Given: No Hx Pneumococcal Vaccination/Date Given: No Immunizations Up to Date: No Travel Risk - International Travel Have you traveled outside of the country in past 3 weeks: No - Coronavirus Screening Are you exhibiting any of the following symptoms?: No Close contact with a COVID-19 positive Pt in past 14-21 Days: No - Vaccine Status Have you recieved a 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 - Review of Systems Constitutional: No Symptoms, No Fever, No Chills Eyes: No Symptoms Ears, Nose, & Throat: No Symptoms Respiratory: No Symptoms, No Cough, No Dyspnea Cardiac: No Symptoms, No Chest Pain, No Edema, No Syncope Abdominal/Gastrointestinal: No Symptoms, No Abdominal Pain, No Nausea, No Vomiting, No Diarrhea Genitourinary Symptoms: No Symptoms, No Dysuria Musculoskeletal: No Symptoms, No Back Pain, No Neck Pain Skin: No Symptoms, No Rash Neurological: No Symptoms, No Dizziness, No Focal Weakness, No Sensory Changes Psychological: No Symptoms Endocrine: No Symptoms Hematologic/Lymphatic: No Symptoms Immunological/Allergic: No Symptoms All Other Systems: Reviewed and Negative - Past Medical History Pertinent Past Medical History: Yes Neurological History: No Pertinent History ENT History: No Pertinent History Cardiac History: High Cholesterol, Hypertension Respiratory History: No Pertinent History Endocrine Medical History: Diabetes Type II Musculoskeletal History: No Pertinent History GI Medical History: Gallbladder Disease History: Other Psycho-Social History: No Pertinent History Female Reproductive Disorders: No Pertinent History Other Medical History: Bursitis in the R hip - Past Surgical History Past Surgical History: Yes Neuro Surgical History: No Pertinent History Cardiac: No Pertinent History Respiratory: No Pertinent History Gastrointestinal: Cholecystectomy Genitourinary: Other Musculoskeletal: No Pertinent History Female Surgical History: Section, Hysterectomy, Tubal Ligation Other Surgical History: HX Bladder Surgery with Mesh - Social History Smoking Status: Never smoker Exposure to second hand smoke: No Alcohol Use: Socially Drug Use: none Patient Lives Alone: No Significant Family History: diabetes - Female History Hx Now: No - Nursing Vital Signs Nursing Vital Signs: Initial Vital Signs Temperature 97.2 F 12/30/22 20:42 Pulse Rate 81 12/30/22 20:42 Respiratory Rate 17 12/30/22 20:42 Blood Pressure 113/80 12/30/22 20:42 O2 Sat by Pulse Oximetry 100 12/30/22 20:42 Pain Scale Pain Intensity 4 - Physical Exam General Appearance: no apparent distress, alert, other (1 cm laceration to right earlobe.) Eye Exam: PERRL/EOMI, eyes nml inspection Ears, Nose, Throat Exam: normal ENT inspection, TMs normal, pharynx normal, moist mucous membranes Neck Exam: normal inspection, non-tender, supple, full range of motion Respiratory Exam: normal breath sounds, lungs clear, airway intact, No respiratory distress Cardiovascular Exam: regular rate/rhythm, normal heart sounds, normal peripheral pulses Gastrointestinal/Abdomen Exam: soft, normal bowel sounds, No tenderness, No mass Back Exam: normal inspection, normal range of motion, No CVA tenderness, No vertebral tenderness Extremity Exam: normal inspection, normal range of motion, pelvis stable Neurologic Exam: alert, oriented x 3, cooperative, normal mood/affect, nml cerebellar function, nml station & gait, sensation nml, No motor deficits Skin Exam: normal color, warm, dry, No rash Lymphatic Exam: No adenopathy SpO2 Interpretation: normal SpO2: 100 O2 Delivery: Room Air Procedures - Laceration/Wound Repair Other Wound Location: Right (2 cm laceration right earlobe.) Wound Length (cm): 2 Wound's Depth, Shape: superficial Wound Explored: clean Irrigated: Yes Hibiclens Prep: Yes Anesthesia: 1% Lidocaine Volume Anesthetic (ccs): 3 Wound Debrided: No debridement indicated. Wound Repaired With: sutures Suture Size/Type: 5-0 Number of Sutures: 3 Layer Closure?: No Sterile Dressing Applied?: No Splint Applied?: No Sling Applied?: No Progress: 12/30/22 22:54 Patient neurovascular tact distally post procedure. - Course Nursing assessment & vital signs reviewed: Yes - CT Exams Head CT Interpretation: Tele-radiologist Report (No comps normal head) Chest CT Interpretation: Tele-radiologist Report (No comp. Minimal C4-C7 degenerative disc disease otherwise normal C-spine) Ordered Tests: Active Orders 24 hr Category Date Time Status CERVICAL SPINE WO CONTRAST [CT] Stat Exams 12/30/22 20:43 Taken HEAD WITHOUT CONTRAST [CT] Stat Exams 12/30/22 20:43 Taken - Progress Progress: improved Progress Note: Patient is a 47-year-old female presents to our ED for evaluation of laceration to right earlobe status post trauma due to the handle of a old outdoor lawn more. Laceration repair completed. 3 simple interrupted sutures placed after anesthesia using 1% lidocaine. Patient tolerated procedure well. CT head and neck/cervical spine normal. Patient received a dose of Tylenol and Keflex in our ED. A prescription for Keflex forwarded to patient's pharmacy. Sutures need to stay in place for 1 week. Patient follow-up with her primary care doctor for reevaluation within 48 hours. Portions of this note were created with voice recognition technology. There may be grammatical, spelling, punctuation or sound alike errors Complexity of problem addressed is low acute uncomplicated. No critical care time Complexity of data reviewed is low. Risk of complication and or risk morbidity/mortality of patient management is moderate. Test ordered. Test reviewed. Laceration repair completed. Lidocaine local anesthetic prior to laceration repair. We will discharge home. Patient agrees to follow-up with primary care doctor within 48 hours for reevaluation. No social determinants of health present to impede follow-up. Patient received a dose of antibiotics/Keflex in our ED. A prescription for the same was forwarded to patient's pharmacy. Portions of this note were created with voice recognition technology. There may be grammatical, spelling, punctuation or sound alike errors 12/30/22 23:07 Counseled pt/family regarding: diagnosis, need for follow-up, rad results - Departure Departure Disposition: Home Clinical Impression: Laceration, Head trauma, Loss of consciousness, Concussion Condition: Stable Critical Care Time: No Referrals: SHAWN THORNTON MD [Primary Care Provider] - Follow up/PCP as directed Prescriptions: Cephalexin Mh 500 mg [Keflex 500 mg] 500 mg PO TID #21 cap
[2022-12-30] MEDS ORDERED: KEFLEX 500 MG PO ONE (23:01)
[2022-12-30] MEDS ORDERED: TYLENOL 325 MG PO ONE (23:04)
[2022-12-30 23:06] VITALS: BP 117/80; PULSE 82
--- NOTE | 2022-12-31 08:45 | XRAY ---
Indication: Right head injury with loss of consciousness. Multiple contiguous axial images obtained through the cervical spine. Sagittal and coronal reformatted images obtained. Comparison: None Axial images negative for acute fracture, suspicious bony lesions, or spinal canal stenosis. Minimal/mild C4-C7 degenerative endplate spurring. Facets are symmetric. Sagittal and coronal reformatted images demonstrates normal alignment with minimal C5-C7 disc space narrowing. No acute compression fracture, subluxation, or jumped facet. Normal appearing craniocervical junction. Visualized noncontrasted soft tissues demonstrates minimal bilateral carotid calcifications. Lung apices are clear. Impression: 1. Negative acute fracture/subluxation. 2. Chronic findings including C4-C7 degenerative changes and minimal bilateral carotid calcifications.
--- NOTE | 2022-12-31 08:45 | XRAY ---
Indication: Right head injury with loss of consciousness. Multiple contiguous axial images obtained through the head without contrast. Comparison: None Normal appearing brain parenchyma, ventricles, and bony calvarium. Visualized paranasal sinuses and mastoid air cells are clear. Impression: Normal CT head without contrast exam.
== END 2022-12-30 23:11 | disposition home or self-care (01) ==
LOC: ED 20:37
DX: S01.311A Laceration without foreign body of right ear, initial encounter (principal); S06.0X1A Concussion with loss of consciousness of 30 minutes or less, initial encounter; W20.8XXA Other cause of strike by thrown, projected or falling object, initial encounter; Y93.H2 Activity, gardening and landscaping; Y92.007 Garden or yard of unspecified non-institutional (private) residence as the place of occurrence of the external cause; M54.2 Cervicalgia; E78.5 Hyperlipidemia, unspecified; I10 Essential (primary) hypertension; E11.9 Type 2 diabetes mellitus without complications; Z79.899 Other long term (current) drug therapy
CPT/HCPCS: 12011; 70450; 72125; 99283

== ENCOUNTER 2024-12-01 15:53 | Day surgery (SDC) | payer BC ==
[2024-12-01] MEDS ORDERED: BUPIVACAINE 0.5% VIAL IJ ONE (15:54)
[2024-12-01] MEDS ORDERED: LIDOCAINE HCL 1% AMPUL 5 ML IJ ONE (15:54)
[2024-12-01] MEDS ORDERED: Depo-Medrol 40 MG/ML IM ONE (15:54)
--- NOTE | 2024-12-01 19:47 | XRAY ---
Indication: Right hip and greater trochanter bursa injection. Intraoperative fluoroscopy provided for 17 seconds. 2 digital spot image submitted for interpretation demonstrates needle tips projecting lateral to right femur neck and greater trochanter. Small amount of contrast injected for needle tip placement. Correlate with intraoperative findings/report.
--- NOTE | 2024-12-02 18:00 | XRAY ---
17 seconds of fluoroscopy was used in surgery for a right in hip and greater trochanteric bursa injection.
== END 2024-12-01 18:00 | disposition home or self-care (01) ==
LOC: SDC-PAIN 15:53
PROVIDERS: ATTEND Psychiatry & Neurology Pain Medicine
DX: M16.11 Unilateral primary osteoarthritis, right hip (principal); M70.61 Trochanteric bursitis, right hip; E11.9 Type 2 diabetes mellitus without complications
CPT/HCPCS: 20610; 73502; 77002; Q9966